=== PATIENT | male | born 1975 | race African-American/Black ===

== ENCOUNTER 2016-03-03 08:38 | Emergency (ER) | payer OTHER, MEDICAID ==
[~2016-03-03] VITALS: Ht 180.3 cm; Wt 112.0 kg
[2016-03-03 09:45] LABS: Basophils # (auto) 0 uL; Basophils % (auto) 0.1 % (0.0-2.0); Eosinophils # (auto) 0.1 uL; Eosinophils % (auto) 0.6 % (0.0-7.0); Hematocrit 43.9 % (41.0-53.0); Hemoglobin 14.6 g/dL (13.5-17.5); Lymphocytes # (auto) 1.4 uL; Lymphocytes % (auto) 8.2 % (10.0-50.0); Mean Corpuscular Hemoglobin 27.3 pg (28.0-32.0); Mean Corpuscular Hgb Conc. 33.1 g/dL (32.0-36.0); Mean Corpuscular Volume 82.4 fL (80.0-100.0); Mean Platelet Volume 7.8 fL (7.4-10.4); Monocytes # (auto) 0.7 uL; Monocytes % (auto) 3.9 % (0.0-12.0); Neutrophils # (auto) 15.1 uL; Neutrophils % (auto) 87.2 % (37.0-80.0); Platelet Count (auto) 289 10^3/uL (140-450); Red Cell Distribution Width 13.4 % (11.6-16.0); White Blood Cell 17.3 10^3/uL (4.4-10.8)
[2016-03-03] MEDS ORDERED: ALBUTEROL SULF 2.5 MG/0.5ML(0.5%) NEB SOLN NEB ONE (09:45)
[2016-03-03] MEDS ORDERED: methylPREDNISolone SOD SUCC 125 MG/2 ML VL IV ONE (09:45)
[2016-03-03] MEDS ORDERED: IPRATROPIUM BROM 0.5 MG/2.5ML INH SOL NEB ONE (09:45)
[2016-03-03 10:00] VITALS: BP 162/110
[2016-03-03 10:25] LABS: Albumin 3.7 g/dL (3.4-5.0); BUN/Creatinine Ratio 12.2; Bilirubin, Total 0.4 mg/dL (0.2-1.0); Calcium 8.9 mg/dL (8.5-10.1); Potassium 4.3 mmol/L (3.5-5.1); Total Protein 7.9 g/dL (6.4-8.2)
[2016-03-03 10:33] LABS: Urine Bilirubin Negative (Negative); Urine Color Yellow (Yellow); Urine Glucose Normal (Normal); Urine Ketone Negative (Negative); Urine Mucus FEW (None Seen); Urine Nitrite Negative (Negative); Urine RBC 3 /hpf (0 - 3); Urine Squamous Epithelial Cell FEW /hpf (<5); Urine Urobilinogen Normal (Negative)
[2016-03-03 10:37] LABS: Urine Blood 1+ /uL (Negative)
[2016-03-03] MEDS ORDERED: KETOROLAC TROMETH 30 MG/ML 1ML VIAL IV ONE (11:00)
[2016-03-03] MEDS ORDERED: LEVOFLOXACIN 250 MG TAB ONE (11:05)
[2016-03-03] MEDS ORDERED: LEVOFLOXACIN 250 MG TAB PO ONE (11:15)
[2016-03-03] MEDS ORDERED: LEVOFLOXACIN 750MG 150 ML IV ONE (11:15)
== END 2016-03-03 11:15 | disposition left against medical advice (07) ==
LOC: ER 08:41
DX: R06.02 Shortness of breath (principal); Z53.21 Procedure and treatment not carried out due to patient leaving prior to being seen by health care provider
CPT/HCPCS: 36415; 71010; 80053; 81001; 84484; 85025; 93005; 94640; 96374; 96375; 99281; J1885; J2930; 94761